=== PATIENT | male | born 1995 ===

== ENCOUNTER 2018-09-11 22:33 | Observation (INO) ==
[2018-09-12] MEDS ORDERED: *HR* LORazepam 1 MG TABLET PO PRN (00:04)
[2018-09-12] MEDS ORDERED: hydrOXYzine pamoate 25 MG CAPSULE PO PRN (00:04)
[2018-09-12] MEDS ORDERED: Ibuprofen 400 MG TABLET PO PRN (00:04)
[2018-09-12] MEDS ORDERED: MOM Conc 10 ML UD.LIQ PO PRN (00:04)
[2018-09-12] MEDS ORDERED: traZODone 50 MG TABLET PO PRN (00:04)
[2018-09-12] MEDS ORDERED: *HR* LORazepam 2 MG/ML VIAL IM PRN (00:04)
[2018-09-12] MEDS ORDERED: Haloperidol Lactate 5 MG/ML VIAL IM PRN (00:04)
[2018-09-12] MEDS ORDERED: Mag Hydrox/Al Hydrox/Simeth 30 ML UDC PO PRN (00:04)
--- NOTE | 2018-09-12 10:20 | Discharge Summary ---
Date of Encounter: 09/13/18 Time of Encounter: 09:00 History of Present Illness Chief complaint: Suicidal ideation Admitted From: Hospital to Hospital Transfer ([facility]) History of Present Illness: Mr. Padilla is a 22 year old male transferred from [facility] in [facility] for evaluation of suicidal ideation and attempt to jump off a bridge to kill himself. From the records, patient had an argument with his and was stopped by police from jumping off a bridge to kill himself. Patient had no previous mental health history or treatment. UDS was positive for THC. Patient was medicated in the emergency room at [facility] with Haldol, Cogentin, Ativan and Zyprexa. Patient admits to using marijuana, denies any use of alcohol or other drugs. He is and has 2 years old child. He believes his is cheating on him and is trying to save his marriage. Patient is working at a [employer], he has high school education. She denies any previous suicide ideation or attempts or any mental health history. Past Med Surg Social Fam HX - Past Medical History Medical history: no medical history - Past Psychiatric History Psychiatric history: Reports: no psych history - Past Surgical History Surgical History: no surgical history - Social History Smoking Status: Current every day smoker Smokeless Tobacco Status: No Alcohol use: occasionally Drug use: marijuana Medications - Discharge Medications No Known Home Drugs 09/13/18 [History] 3 Allergy/AdvReac Type Severity Reaction Status Date / Time diphenhydramine Allergy Hives Verified 09/11/18 22:53 [From Benadryl] Review of Systems Psychiatric: Reports: depression, suicidal ideation, hopelessness Exam - HEENT Head exam IM: Present: atraumatic Eye exam IM: Present: EOMI, normal appearance, PERRL ENT exam IM: Present: normal exam - Neurological Neurological exam: Present: CN II-XII intact - Respiratory Respiratory exam IM: Present: CTAB - GI/Abdominal GI/Abdominal exam IM: Present: normal bowel sounds, soft. Absent: tenderness - Extremities Extremities exam IM: Present: full ROM - Skin Skin exam IM: Present: dry, warm - Constitutional Vitals: Temp Pulse Resp BP 98.4 F 60 16 114/74 09/12/18 09:00 09/12/18 09:00 09/12/18 09:00 09/12/18 09:00 General appearance: age & developmentally appropriate, well-groomed, well- nourished, thin - Musculoskeletal Gait: normal Station: relaxed Strength & Tone: normal for patient - Psychiatric Patient Orientation: Yes Person, Yes Time, Yes Place Level of alertness: Alert Behavior: calm, cooperative, anxious, guarded Psychomotor activity: Normal Eye Contact: Maintains Eye Contact Mood Description: Euthymic/stable, Depressed, Irritable Affect description: congruent with mood, constricted Speech Volume: Normal Speech pattern: normal rate, normal rhythm, normal tone, fluent, spontaneous Language & Vocabulary: consistent with education Thought Process: Linear, Goal Oriented Thought Content: Yes Suicidal ideation, No Homicidal ideation, No Overt delusions Perceptual Disturbances: No Auditory hallucinations, No Visual hallucinations Attention Span Ability: Capable of Focused Attention Memory Description: Grossly Intact Patient Reliability: Reliable Historian Fund of knowledge: Yes abstraction ability, Yes average, Yes aware of current events Intelligence Estimate: Average Judgment: Limited Insight: Partial Diagnosis - Discharge Diagnosis (1) Suicidal ideation Status: Acute (2) Adjustment disorder with depressed mood Status: Acute Assessment and Plan - Patient/Caregiver Discharge Instructions Activity: resume usual activities as tolerated Diet: regular diet - Follow up Plan Functional capacity at discharge: independent ambulation Overall status at discharge: Stable Disposition: Home, Self-Care Provider Date of admission: 09/11/18 22:33 Discharging clinician: Heath Jorge Hospital Course Hospital course: Mr. Padilla is a 22 year old male admitted for suicidal ideation, transferred from [facility]. Patient attempted to jump off a bridge and was stopped by police and taken the hospital. Prior to this patient had an argument with his and felt suicidal. This was her first psychiatric admission for this patient. New On the units patient was cooperative, he reported improved sleep and appetite, he was reluctant to be on medication but he was given when necessary medication for an anxiety and sleep. His significant other visited him and his family visited him. He denied any suicidal ideation or intention to harm himself, he was motivated to participate in counseling after discharge. He was anxious to go back to work. On discharge patient was medically stable, denies suicidal ideation. He was educated about depression and suicide and how to get help. He is discharged in stable condition. - Time Spent with Patient Total time spent providing and/or coordinating discharge services: Greater than 30 minutes Procedures - Procedures Procedures: Medication Management, Crisis Stabilization, Supportive Therapy, Group Therapy, Psychoeducational Therapy Quality - Multiple Antipsychotics Patient discharged on 2 or more antipsychotic medications: No
[2018-09-12] MEDS: Nicotine 21 MG PATCH.TD24 TD SCH (22:31)
[2018-09-13] MEDS: Nicotine 21 MG PATCH.TD24 TD SCH (08:37)
[2018-09-13 09:38] VITALS: BP 133/80
== END 2018-09-13 13:00 | disposition home or self-care (01) ==
LOC: INTOOBSV 22:33 → 1ANU 22:33
PROVIDERS: ADMIT Psychiatry & Neurology Psychiatry; ATTEND Psychiatry & Neurology Psychiatry